=== PATIENT | male | born 1965 | race Caucasian/White ===

== ENCOUNTER 2022-11-15 10:10 | Outpatient (OUT) | payer BC, SELFPAY ==
[2022-11-15 12:19] LABS: Alanine Aminotransferase 22 U/L (16-63); Albumin Globulin Ratio 0.9; Albumin Level 3.8 g/dL (3.4-5.0); Alkaline Phosphatase 83 U/L (46-116); Anion Gap 12.9; Aspartate Amino Transferase 12 U/L (15-37); Bilirubin Total 1.2 mg/dL (0.2-1.0); Carbon Dioxide 28.2 mmol/L (21.0-32.0); Chloride 103 mmol/L (98-107); Estimated GFR (African America >60 (>=60); Estimated GFR (Non-African Ame >60 (>=60); Glucose 105 mg/dL (74-106); Potassium 4.1 mmol/L (3.5-5.1); Sodium 140 mmol/L (136-145); Total Protein 7.8 g/dL (6.4-8.2)
[2022-11-15 12:20] LABS: Chol HDL Ratio 5.2; Cholesterol 229 mg/dL (<=200); HDL Cholesterol 44 mg/dL (40-60); Triglycerides 154 mg/dL (<=150); VLDL CHOLESTEROL 30.8 mg/dL
== END 2022-11-15 10:11 | disposition home or self-care (01) ==
LOC: LAB 10:11
PROVIDERS: Urology; PCP Internal Medicine; Visit Provider Internal Medicine
DX: Z00.00 Encounter for general adult medical examination without abnormal findings (principal)
CPT/HCPCS: 36415; 80053; 80061; 84153

== ENCOUNTER 2023-11-20 16:43 | Outpatient (OUT) | payer BC, SELFPAY ==
[2023-11-20 18:01] LABS: Prostate Specific Antigen Dx 0.49 ng/mL (<=4.00)
== END 2023-11-20 16:44 | disposition home or self-care (01) ==
LOC: LAB 16:44
PROVIDERS: PCP Internal Medicine; Visit Provider Urology
DX: N40.1 Benign prostatic hyperplasia with lower urinary tract symptoms (principal)
CPT/HCPCS: 36415; 84153